=== PATIENT | female | born 1985 | race Caucasian/White ===

== ENCOUNTER 2022-09-04 14:46 | Emergency (ER) | payer MEDICAID ==
[~2022-09-04] VITALS: Ht 157.5 cm; Wt 58.5 kg
--- NOTE | 2022-09-04 15:00 | NUR ---
BIBS C/O VAGINAL BLEED YESTERDAY WITH R FLANK PAIN AND RLQ AB PAIN. PT STATES POSITIVE FOR URINE HOME TEST 1 WEEK. TO ER BED 16.
--- NOTE | 2022-09-04 15:26 | NUR ---
URINE SAMPLE SENT TO LAB
[2022-09-04 16:05] LABS: BILIRUBIN,URINE NEGATIVE (NEGATIVE); COLOR,URINE YELLOW (YELLOW); LEUKOCYTE ESTERASE ,URINE NEGATIVE (NEGATIVE); NITRITE, URINE NEGATIVE (NEGATIVE); PH,URINE 7.5 (5.0-8.0); PROTEIN,URINE NEGATIVE (NEGATIVE); UGLUCOSE NEGATIVE (NEGATIVE); UROBILINOGEN,URINE 0.2 EU/dL (0.2)
[2022-09-04 17:31] LABS: BACTERIA,URINE None seen /HPF (None Seen); RBC,URINE 51-80 /HPF (0-2); URINE AMORPHOUS PHOSPHATES Moderate /HPF (None Seen); WBC,URINE 0-2 /HPF (0-3)
--- NOTE | 2022-09-04 17:32 | NUR ---
Patient discharged to home in stable condition. Written and verbal after care instructions given. Patient verbalizes understanding of instruction.
[2022-09-04 17:34] VITALS: BP 111/69
== END 2022-09-04 17:34 | disposition home or self-care (01) ==
LOC: ER 14:51
DX: O20.0 Threatened abortion (principal); Z3A.01 Less than 8 weeks gestation of pregnancy
CPT/HCPCS: 36415; 76805-TC; 81001; 84702-TC; 84703-TC